=== PATIENT | male | born 1995 | race Two or more races ===

== ENCOUNTER 2020-08-10 07:29 | Emergency (ER) | payer OTHER ==
[~2020-08-10] VITALS: Ht 172.7 cm; Wt 63.5 kg
== END 2020-08-10 13:33 | disposition home or self-care (01) ==
LOC: ER 07:29
DX: T80.62XA Other serum reaction due to vaccination, initial encounter (principal); L23.3 Allergic contact dermatitis due to drugs in contact with skin; T50.Z95A Adverse effect of other vaccines and biological substances, initial encounter; Y92.89 Other specified places as the place of occurrence of the external cause